=== PATIENT | female | born 1990 | race African-American/Black ===

== ENCOUNTER 2016-03-17 19:06 | Emergency (ER) | payer OTHER ==
[~2016-03-17] VITALS: Ht 170.2 cm; Wt 120.0 kg
[~2016-03-17 19:06] MED LIST: CYCL-36 PO; Z.0.NO CURRENT MEDS
[2016-03-17 19:08] VITALS: BP 133/87; PULSE 125; RESP 30; TEMP 99.1; O2SAT 100
--- NOTE | 2016-03-17 19:28 | PD ---
HPI Chief Complaint: Respiratory Symptoms Time Seen by Provider: 19:19 Travel History International Travel<30 days: No Contact w/Intl Traveler<30days: No Traveled to known affect area: No History of Present Illness HPI 25-year-old female with history of no significant past medical issues, presents to the ER today because she states that she has had a cold for several days and is having trouble breathing today. She denies any fevers chest pains, or any other issues. Modifying Factors: None Associated Signs & Symptoms: Shortness of breath Risk Factors: None PFSH Past Medical History Medical History: Denies Significant Hx Diminished Hearing: No Immunizations Current: Yes ?: Not Past Surgical History Section: Yes Other Surgery: Yes (CYST REMOVAL LEFT ARM) Social History Alcohol Use: Yes (SOCIAL) Tobacco Use: No Substance Use: Yes (MARIJUANA OCC.) Allergies-Medications (Allergen,Severity, Reaction): Coded Allergies: No Known Allergies (Verified , 03/17/16) Reported Meds & Prescriptions Reported Meds & Active Scripts Active No Active Prescriptions or Reported Medications Review of Systems Except as stated in HPI: all other systems reviewed are Neg Physical Exam Narrative GENERAL: Well-nourished, well-developed young obese -[place] female patient in moderate respiratory distress. SKIN: Warm and dry. HEAD: Normocephalic. EYES: No scleral icterus. No injection or drainage. NECK: Supple, trachea midline. CARDIOVASCULAR: Regular rate and rhythm without murmurs, gallops, or rubs. RESPIRATORY: Breath sounds equal with wheezing throughout bilaterally. Moderate accessory muscle use. GASTROINTESTINAL: Abdomen soft, non-tender, nondistended. MUSCULOSKELETAL: No cyanosis, or edema. BACK: Nontender without obvious deformity. No CVA tenderness. Data Data Last Documented VS Vital Signs Date Time Temp Pulse Resp B/P Pulse Ox O2 Delivery O2 Flow Rate FiO2 03/17/16 19:08 99.1 125 30 133/87 100 Orders Complete Blood Count With Diff (03/17/16 19:20) Basic Metabolic Panel (Bmp) (03/17/16 19:20) D-Dimer (03/17/16 19:20) Influenzae A/B Antigen (03/17/16 19:20) Iv Access Insert/Monitor (03/17/16 19:20) Electrocardiogram (03/17/16 19:20) Ecg Monitoring (03/17/16 19:20) Oximetry (03/17/16 19:20) Oxygen Administration (03/17/16 19:20) Chest, Single Ap (03/17/16 19:20) Sodium Chloride 0.9% Flush (Ns Flush) (03/17/16 19:30) Methylprednisolone So Succ Inj (Solumedr (03/17/16 19:30) Albuterol-Ipratropium Neb (Duoneb Neb) (03/17/16 19:30) Ed Urine Pregnancytest Poc (03/17/16 19:20) Albuterol-Ipratropium Neb (Duoneb Neb) (03/17/16 20:30) Acetaminophen (Tylenol) (03/17/16 21:00) Labs Laboratory Tests Test 03/17/16 19:25 White Blood Count 12.9 TH/MM3 Red Blood Count 4.41 MIL/MM3 Hemoglobin 13.3 GM/DL Hematocrit 38.9 % Mean Corpuscular Volume 88.3 FL Mean Corpuscular Hemoglobin 30.2 PG Mean Corpuscular Hemoglobin 34.3 % Concent Red Cell Distribution Width 13.7 % Platelet Count 300 TH/MM3 Mean Platelet Volume 8.7 FL Neutrophils (%) (Auto) 69.0 % Lymphocytes (%) (Auto) 22.1 % Monocytes (%) (Auto) 7.6 % Eosinophils (%) (Auto) 0.9 % Basophils (%) (Auto) 0.4 % Neutrophils # (Auto) 8.9 TH/MM3 Lymphocytes # (Auto) 2.8 TH/MM3 Monocytes # (Auto) 1.0 TH/MM3 Eosinophils # (Auto) 0.1 TH/MM3 Basophils # (Auto) 0.1 TH/MM3 CBC Comment DIFF FINAL Differential Comment D-Dimer Quantitative (PE/DVT) 0.26 MG/L FEU Sodium Level 137 MEQ/L Potassium Level 3.4 MEQ/L Chloride Level 105 MEQ/L Carbon Dioxide Level 23.6 MEQ/L Anion Gap 8 MEQ/L Blood Urea Nitrogen 11 MG/DL Creatinine 0.94 MG/DL Estimat Glomerular Filtration 86 ML/MIN Rate Random Glucose 92 MG/DL Calcium Level 8.7 MG/DL MDM Medical Decision Making Medical Screen Exam Complete: Yes Emergency Medical Condition: Yes Medical Record Reviewed: Yes Interpretation(s) Laboratory Tests Test 1/28/17 19:25 White Blood Count 12.9 TH/MM3 (4.0-11.0) Neutrophils # (Auto) 8.9 TH/MM3 (1.8-7.7) Monocytes # (Auto) 1.0 TH/MM3 (0-0.9) Potassium Level 3.4 MEQ/L (3.5-5.1) Estimat Glomerular Filtration 86 ML/MIN (>89) Rate Last 24 hours Impressions Chest X-Ray 03/17/16 1920 Signed Impressions: Service Date/Time: Thursday, March 17, 2016 19:57 - CONCLUSION: The lungs are clear. Diego Perrin MD Differential Diagnosis Shortness of breathbronchitis versus pneumonia versus asthma exacerbation Narrative Course Chest x-ray did not reveal any signs of acute pneumonia. Influenza is negative. Her d-dimer is also negative. At this point, patient had been given Solu-Medrol and DuoNeb's and on reevaluation at 8:50 PM is feeling some improvement. However, she is still wheezing and a second dose was also given. Physician Communication Physician Communication Case is signed out to CHAU Arora awaiting reevaluation after nebulizer. Planning on release her with follow-up to primary care physician as long as she is feeling improved and doing well in the ER. Diagnosis Primary Impression: ACUTE BRONCHITIS, UNSPECIFIED Med/Other Pt SpecificInfo: Prescription(s) given Scripts Albuterol 6.7 GM Inh (Proventil Hfa 6.7 GM Inh)90 Mcg/Act Aer2 Puff INH Q4-6H PRN (SHORTNESS OF BREATH) #1 INHALER Ref 0 Prov:Neal Stafford MD 03/17/16 Prednisone 50 Mg Tab50 Mg PO DAILY #5 TAB Ref 0 Prov:Neal Stafford MD 03/17/16 Azithromycin (Zithromax Z-John)250 Mg [id number] Mg PO DIRECTED #1 DSPK Ref 0 500 MG (2 tabs) day 1, then 1 tab days 2-5. Prov:Neal Stafford MD 03/17/16 Disposition: 01 DISCHARGE HOME Condition: Stable Neal Stafford MD Mar 17, 2016 19:28
[2016-03-17] MEDS ORDERED: methylPREDNISolone SOD SUCC 125 MG/2 ML VIAL IVP ONE (19:30)
[2016-03-17] MEDS ORDERED: SODIUM CHLORIDE 0.9% FLUSH 5 ML FLUSH IVF PRN (19:30)
[2016-03-17] MEDS: RESP: ALBUTEROL 2.5 MG/IPRATROPIUM 0.5 MG NEB (SCH) INH ×3 (19:47→21:05)
[2016-03-17 20:10] LABS: AUTOMATED NEUTROPHIL # 8.9 TH/MM3 (1.8-7.7); BASOPHIL # 0.1 TH/MM3 (0-0.2); BASOPHIL % 0.4 % (0.0-2.0); EOSINOPHIL # 0.1 TH/MM3 (0-0.4); EOSINOPHIL % 0.9 % (0.0-4.0); HEMATOCRIT 38.9 % (35.0-46.0); HEMO FLAGS DIFF FINAL; LYMPH % 22.1 % (9.0-44.0); LYMPHOCYTE # 2.8 TH/MM3 (1.0-4.8); MEAN CELL VOLUME 88.3 FL (80.0-100.0); MEAN CORPUSCULAR HEMOGLOBIN 30.2 PG (27.0-34.0); MEAN CORPUSCULAR HGB CONC 34.3 % (32.0-36.0); MONO % 7.6 % (0.0-8.0); PLATELET COUNT 300 TH/MM3 (150-450); RED BLOOD COUNT 4.41 MIL/MM3 (4.00-5.30); RED CELL DISTRIBUTION WIDTH 13.7 % (11.6-17.2); WHITE BLOOD COUNT 12.9 TH/MM3 (4.0-11.0)
--- NOTE | 2016-03-17 20:19 | RADRPT ---
EXAM DATE/TIME: 03/17/2016 19:57 [facility] COMPARISON: No previous studies available for comparison. INDICATIONS : Short of breath. MEDICAL HISTORY : None. SURGICAL HISTORY : None. ENCOUNTER: Initial ACUITY: 1 day PAIN SCORE: 7/10 LOCATION: Bilateral chest FINDINGS: A single view of the chest demonstrates the lungs to be symmetrically aerated without evidence of mas s, infiltrate or effusion. No evidence of pneumothorax. The cardiomediastinal contours are unremark able. Osseous structures are intact. CONCLUSION: The lungs are clear. Diego Perrin MD on March 17, 2016 at 20:18 Board Certified Radiologist. This report was verified electronically.
[2016-03-17 20:39] LABS: BICARBONATE 23.6 MEQ/L (21.0-32.0); POTASSIUM 3.4 MEQ/L (3.5-5.1)
[2016-03-17] MEDS ORDERED: ACETAMINOPHEN 500 MG CPLT PO ONE (21:00)
[2016-03-17] MEDS ORDERED: PRED50 PO (21:04)
[2016-03-17] MEDS ORDERED: ALBU6.7H INH (21:04)
[2016-03-17] MEDS ORDERED: ZITHTAB PO (21:04)
--- NOTE | 2016-03-17 22:27 | PD ---
Physical Exam Date Seen by Provider: Mar 17, 2016 Time Seen by Provider: 22:25 Narrative 25-year-old female that presents to the ED for evaluation of shortness of breath. I was asked by my attending to evaluate patient after doing nebs for likely discharge. Please refer to her note. On my evaluation lungs appear to be clear bilaterally. No sign of wheezing or rales noted. Patient feels improvement of the shortness of breath. Data Data Last Documented VS Vital Signs Date Time Temp Pulse Resp B/P Pulse Ox O2 Delivery O2 Flow Rate FiO2 03/17/16 19:08 99.1 125 30 133/87 100 Orders Complete Blood Count With Diff (03/17/16 19:20) Basic Metabolic Panel (Bmp) (03/17/16 19:20) D-Dimer (03/17/16 19:20) Influenzae A/B Antigen (03/17/16 19:20) Iv Access Insert/Monitor (03/17/16 19:20) Electrocardiogram (03/17/16 19:20) Ecg Monitoring (03/17/16 19:20) Oximetry (03/17/16 19:20) Oxygen Administration (03/17/16 19:20) Chest, Single Ap (03/17/16 19:20) Sodium Chloride 0.9% Flush (Ns Flush) (03/17/16 19:30) Methylprednisolone So Succ Inj (Solumedr (03/17/16 19:30) Albuterol-Ipratropium Neb (Duoneb Neb) (03/17/16 19:30) Ed Urine Pregnancytest Poc (03/17/16 19:20) Albuterol-Ipratropium Neb (Duoneb Neb) (03/17/16 20:30) Acetaminophen (Tylenol) (03/17/16 21:00) Labs Laboratory Tests Test 03/17/16 19:25 White Blood Count 12.9 TH/MM3 Red Blood Count 4.41 MIL/MM3 Hemoglobin 13.3 GM/DL Hematocrit 38.9 % Mean Corpuscular Volume 88.3 FL Mean Corpuscular Hemoglobin 30.2 PG Mean Corpuscular Hemoglobin 34.3 % Concent Red Cell Distribution Width 13.7 % Platelet Count 300 TH/MM3 Mean Platelet Volume 8.7 FL Neutrophils (%) (Auto) 69.0 % Lymphocytes (%) (Auto) 22.1 % Monocytes (%) (Auto) 7.6 % Eosinophils (%) (Auto) 0.9 % Basophils (%) (Auto) 0.4 % Neutrophils # (Auto) 8.9 TH/MM3 Lymphocytes # (Auto) 2.8 TH/MM3 Monocytes # (Auto) 1.0 TH/MM3 Eosinophils # (Auto) 0.1 TH/MM3 Basophils # (Auto) 0.1 TH/MM3 CBC Comment DIFF FINAL Differential Comment D-Dimer Quantitative (PE/DVT) 0.26 MG/L FEU Sodium Level 137 MEQ/L Potassium Level 3.4 MEQ/L Chloride Level 105 MEQ/L Carbon Dioxide Level 23.6 MEQ/L Anion Gap 8 MEQ/L Blood Urea Nitrogen 11 MG/DL Creatinine 0.94 MG/DL Estimat Glomerular Filtration 86 ML/MIN Rate Random Glucose 92 MG/DL Calcium Level 8.7 MG/DL [facility] Medical Record Reviewed: Yes Supervised Visit with SURYA: No Differential Diagnosis See my attendings note. Narrative Course 25-year-old female that presents to the ED for evaluation of shortness of breath. Patient was properly examined by my attending who was me to discharge patient as well as patient feels improved after breathing treatments. On my assessment patient's lungs appear to be clear. Patient does appear to have improved. Patient was reassured. Recommendation is for patient to take medications prescribed to her by my attending and follow with PCP. See ED for any worsening symptoms. She is agreeable with plan. Diagnosis Primary Impression: ACUTE BRONCHITIS, UNSPECIFIED Patient Instructions: General Instructions, Acute Bronchitis (ED) Departure Forms: Work Release, Enter return to work date: Mar 19, 2016 Tests/Procedures Scripts Albuterol 6.7 GM Inh (Proventil Hfa 6.7 GM Inh)90 Mcg/Act Aer2 Puff INH Q4-6H PRN (SHORTNESS OF BREATH) #1 INHALER Ref 0 Prov:Neal Stafford MD 03/17/16 Prednisone 50 Mg Tab50 Mg PO DAILY #5 TAB Ref 0 Prov:Neal Stafford MD 03/17/16 Azithromycin (Zithromax Z-John)250 Mg [id number] Mg PO DIRECTED #1 DSPK Ref 0 500 MG (2 tabs) day 1, then 1 tab days 2-5. Prov:Neal Stafford MD 03/17/16 Disposition: 01 DISCHARGE HOME Condition: Stable Cheko Arora Mar 17, 2016 22:27
--- NOTE | 2016-03-18 12:26 | EKG ---
Date Performed: 03/17/2016 Time Performed: 19:40:05 PTAGE: 25 years EKG: SINUS TACHYCARDIA ABNORMAL RHYTHM ECG NO PREVIOUS TRACING DOCTOR: Maurice Parker Interpretating Date/Time 03/18/2016 12:25:07
== END 2016-03-17 22:22 | disposition home or self-care (01) ==
LOC: NEPA 19:06
DX: J20.9 Acute bronchitis, unspecified (principal)
CPT/HCPCS: 71010; 80048; 84703; 85025; 85379; 87804; 93005; 94640; 94664; 96374; 99285; J2930

== ENCOUNTER 2017-01-31 10:44 | Emergency (ER) | payer OTHER ==
[~2017-01-31] VITALS: Ht 170.2 cm; Wt 122.0 kg
[~2017-01-31 10:44] MED LIST changes: +ALBU6.7H INH; -CYCL-36 PO; +PRED50 PO; -Z.0.NO CURRENT MEDS; +ZITHTAB PO
[2017-01-31 10:52] VITALS: BP 140/84; PULSE 87; RESP 18; O2SAT 100
[2017-01-31 10:57] VITALS: BP 140/84; PULSE 87; RESP 18; TEMP 97.8; O2SAT 100
[2017-01-31] MEDS ORDERED: TIZA4CAP3 PO (11:00)
[2017-01-31] MEDS ORDERED: HYDR-3583 PO (11:00)
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
[2017-01-31] MEDS ORDERED: ORPHENADRINE INJ 60 MG/2 ML AMP IM ONE (11:30)
[2017-01-31] MEDS ORDERED: KETOROLAC TROMETHAMINE 60 MG/2 ML (IM) VIAL IM ONE (11:30)
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
[2017-01-31 13:55] VITALS: BP 153/92
== END 2017-01-31 13:56 | disposition home or self-care (01) ==
LOC: NEPD 10:44
DX: M41.9 Scoliosis, unspecified (principal); V43.52XA Car driver injured in collision with other type car in traffic accident, initial encounter; Y92.481 Parking lot as the place of occurrence of the external cause
CPT/HCPCS: 71010; 72125; 72128; 72131; 96372; 99285; J1885; J2360